=== PATIENT | male | born 1950 | race Caucasian/White ===

== ENCOUNTER → 2019-01-15 | Outpatient (CLI) | payer BC ==
--- NOTE | 2019-01-15 15:48 | US ---
EXAMINATION TYPE: US kidneys/renal and bladder DATE OF EXAM: 01/15/2019 COMPARISON: NONE CLINICAL HISTORY: R94.4 Abnormal labs. EXAM MEASUREMENTS: Right Kidney: 11.6 x 5.8 x 5.4 cm Left Kidney: 12.0 x 6.1 x 5.5 cm Post Void Residual Volume: 38.6 mL Right Kidney: lower pole cyst measures 1.4 x 1.3 x 1.5 cm. This appears simple. Left Kidney: two upper pole small cysts, largest measures 1.0 cm. These appear simple. Bladder: wnl Bilateral Jets seen: yes Normal Post Void Residual: yes, at 38.6 ml IMPRESSION: 1. Bilateral Renal cysts.
== END | disposition home or self-care (01) ==
LOC: RADUSWWP 15:16
PROVIDERS: ATTEND Family Medicine
DX: N28.1 Cyst of kidney, acquired (principal); R79.89 Other specified abnormal findings of blood chemistry
CPT/HCPCS: 76770